=== PATIENT | male | born 1990 | race American Indian/Alaskan Native ===

== ENCOUNTER 2022-04-18 08:41 | Emergency (ER) | payer SELFPAY ==
[2022-04-18 09:11] VITALS: BP 115/85
--- NOTE | 2022-04-18 10:17 | XRay Report ---
LEFT FOOT 3 VIEWS INDICATION / CLINICAL INFORMATION: injury to toe. COMPARISON: None available. FINDINGS: BONES / JOINT(S): There is an acute appearing fracture involving the base of the middle phalanx of th e third toe. The fracture is comminuted and extends into the PIP joint centrally. No dislocation. No significant arthritis. SOFT TISSUES: No significant abnormality. ADDITIONAL FINDINGS: None. IMPRESSION: Acute intra-articular fracture involving the base of the middle phalanx of the third toe. Signer Name: Josh Cardona MD Signed: 04/18/2022 10:13 AM Workstation Name: [id number]
--- NOTE | 2022-04-18 11:29 | Emergency Department Report ---
<ELADIO WOODWARD Shell - Last Filed: 04/18/22 11:54> ED Lower Extremity HPI - General Chief Complaint: Extremity Injury, Lower Stated Complaint: PSYSICAL/LEFT ANKLE Time Seen by Provider: 04/18/22 10:19 Source: patient Mode of arrival: Ambulatory Limitations: No Limitations - History of Present Illness Initial Comments: 32 YO COMES TO ER [place] LEFT FOOT PAIN. HE STUBBED HIS TOE 2 DAYS AGO. WALKING WITH LIMP NO OTHER INJURY MD Complaint: other -: Gradual, days(s) Type of Injury: blunt Place: home - Related Data Previous Rx's Medication Instructions Recorded Last Taken Type Ibuprofen [Motrin] 800 mg PO Q8HR PRN #30 tablet 04/18/22 Unknown Rx Allergies Allergy/AdvReac Type Severity Reaction Status Date / Time No Known Allergies Allergy Unverified 09/03/18 10:51 ED Review of Systems Comment: All other systems reviewed and negative ED Past Medical Hx - Past Medical History Previous Medical History?: No - Surgical History Past Surgical History?: No - Family History Family history: no significant - Social History Smoking Status: Never Smoker Substance Use Type: None - Medications Home Medications: Home Medications Medication Instructions Recorded Confirmed Last Taken Type Ibuprofen [Motrin] 800 mg PO Q8HR PRN #30 tablet 04/18/22 Unknown Rx ED Physical Exam - General Limitations: No Limitations General appearance: alert, in no apparent distress - Head Head exam: Present: atraumatic, normocephalic - Eye Eye exam: Present: normal appearance - ENT ENT exam: Present: mucous membranes moist - Neck Neck exam: Present: normal inspection - Respiratory Respiratory exam: Present: normal lung sounds bilaterally. Absent: respiratory distress - Cardiovascular Cardiovascular Exam: Present: regular rate, normal rhythm. Absent: systolic murmur, diastolic murmur, rubs, gallop - GI/Abdominal GI/Abdominal exam: Present: soft, normal bowel sounds - Rectal Rectal exam: Present: deferred - Extremities Exam Extremities exam: Present: normal inspection - Back Exam Back exam: Present: normal inspection - Neurological Exam Neurological exam: Present: alert, oriented X3 - Psychiatric Psychiatric exam: Present: normal affect, normal mood - Skin Skin exam: Present: warm, dry, intact, normal color. Absent: rash ED Lower Extremity MDM - Radiology Data Radiology results: report reviewed, image reviewed FX - Medical Decision Making SPLINT/CRUTCHES MOTRIN FOR PAIN NEUROVASC INTACT DC HOME WITH DC PLAN OF CARE INCLUDING DIET, MEDS, ACTIVITY AND FOLLOW UP PT VERBALIZES UNDERSTANDING OF PLAN OF CARE Vital Signs 04/18/22 09:08 Temperature 98.3 F Pulse Rate 76 Respiratory 14 Rate Blood Pressure 115/85 O2 Sat by Pulse 98 Oximetry - Differential Diagnosis RO FX ED Disposition Clinical Impression: Toe fracture Qualifiers: Encounter type: initial encounter Fracture type: closed Disposition: 01 HOME / SELF CARE / HOMELESS Is pt being admited?: No Does the pt Need Aspirin: No Condition: Stable Instructions: Toe Fracture, [id number] Additional Instructions: REST ICE ELEVATE SPLINT/CRUTCHES FOR PAIN OVER THE COUNTER TYLENOL MAY ALSO BE USED FOR PAIN FOLLOW UP WITH ORTHO IN 72 HOURS TO BE SURE THIS IS HEALING WELL REFERRAL BELOW Prescriptions: Ibuprofen [Motrin] 800 mg PO Q8HR PRN #30 tablet PRN Reason: Pain, Moderate (4-6) Referrals: BRYANT RODRIGUEZ MD [Staff Physician] - 3-5 Days Forms: Work/School Release Form(ED) Time of Disposition: 11:48 <DARLENE JEFFREY - Last Filed: 04/18/22 13:54> ED Review of Systems ROS: Stated complaint: PSYSICAL/LEFT ANKLE Other details as noted in HPI ED Course Vital Signs 04/18/22 09:08 Temperature 98.3 F Pulse Rate 76 Respiratory 14 Rate Blood Pressure 115/85 O2 Sat by Pulse 98 Oximetry ED Lower Extremity MDM - Medical Decision Making Patient was managed independently by the mid level below , I was available for consult but i wasn't directly involved in the care of this patient Critical care attestation.: If time is entered above; I have spent that time in minutes in the direct care of this critically ill patient, excluding procedure time. ED Disposition Is pt being admited?: No Does the pt Need Aspirin: No
[2022-04-18] MEDS ORDERED: IBUPROFEN 800 MG TAB PO ONE (11:54)
== END 2022-04-18 14:39 | disposition home or self-care (01) ==
LOC: ED 08:41
DX: S92.522A Displaced fracture of middle phalanx of left lesser toe(s), initial encounter for closed fracture (principal); Z79.899 Other long term (current) drug therapy; W45.8XXA Other foreign body or object entering through skin, initial encounter; Y93.89 Activity, other specified; Y92.89 Other specified places as the place of occurrence of the external cause; Y99.8 Other external cause status
CPT/HCPCS: 99283